=== PATIENT | female | born 2005 | race African-American/Black ===

== ENCOUNTER 2024-10-06 17:54 | Emergency (ER) | payer MEDICAID ==
[~2024-10-06] VITALS: Ht 160 cm; Wt 57.0 kg
[2024-10-06 18:13] VITALS: O2SAT 98
[2024-10-06] MEDS ORDERED: LIDO700A15 TP (19:41)
[2024-10-06] MEDS ORDERED: NAPR-1176 MT (19:41)
[2024-10-06] MEDS: BACITRACIN ZINC OINT UDPKT TOP ONE (19:59)
[2024-10-06] MEDS: KETOROLAC 15MG/ML VIAL IM ONE (20:20)
[2024-10-06 20:22] VITALS: BP 128/81; PULSE 90; RESP 16; TEMP 36.94740; O2SAT 98
== END 2024-10-06 20:23 | disposition home or self-care (01) ==
LOC: ER 17:54
DX: S91.312A Laceration without foreign body, left foot, initial encounter (principal); S80.211A Abrasion, right knee, initial encounter; Z79.1 Long term (current) use of non-steroidal anti-inflammatories (NSAID); S09.90XA Unspecified injury of head, initial encounter; Y08.89XA Assault by other specified means, initial encounter; Y93.89 Activity, other specified; Y92.89 Other specified places as the place of occurrence of the external cause; Y99.8 Other external cause status
CPT/HCPCS: 73562; 73630; 99284; J1885; Z7610